=== PATIENT | male | born 1965 | race American Indian/Alaskan Native ===

== ENCOUNTER 2020-10-25 16:25 | Emergency (ER) | payer OTHER ==
[~2020-10-25] VITALS: Ht 170.2 cm; Wt 70.3 kg
[~2020-10-25 16:25] MED LIST: AMOX1TAB12 PO; DICLOFENAC SODI50 MG PO; DICLOFENAC SODI75 MG PO; IBUPROFEN800 MG PO; KEFLEX500 MG PO; MEDROLPACK PO; SKELAXIN800 MG PO; TYLENOL EXTRA500 MG
== END 2020-10-25 19:08 | disposition home or self-care (01) ==
LOC: ER 16:25
DX: N40.1 Benign prostatic hyperplasia with lower urinary tract symptoms (principal); R35.0 Frequency of micturition; R35.1 Nocturia

== ENCOUNTER 2021-04-21 16:38 | Outpatient (CLI) | payer OTHER | END 2021-04-21 16:48 | disposition home or self-care (01) | LOC: RAD 16:38 | PROVIDERS: ATTEND Internal Medicine | DX: M79.641 Pain in right hand (principal); G89.11 Acute pain due to trauma ==

== ENCOUNTER 2022-07-30 10:22 | Outpatient (CLI) | payer OTHER | END 2022-07-30 10:23 | disposition home or self-care (01) | LOC: RAD 10:22 | PROVIDERS: ATTEND Internal Medicine | DX: M25.552 Pain in left hip (principal); M54.2 Cervicalgia ==

== ENCOUNTER 2022-08-13 14:33 | Emergency (ER) | payer OTHER ==
[~2022-08-13] VITALS: Ht 170.2 cm; Wt 68.9 kg
[2022-08-13] MEDS ORDERED: TAMSULOSIN HCL0.4 MG PO (15:19)
[2022-08-13] MEDS ORDERED: ST. JOSEPH ASPI81 M2 PO (15:19)
== END 2022-08-13 20:16 | disposition home or self-care (01) ==
LOC: ER 14:33
DX: R31.0 Gross hematuria (principal)

== ENCOUNTER 2023-01-05 07:11 | Outpatient (CLI) | payer OTHER ==
[~2023-01-05 07:11] MED LIST changes: +ST. JOSEPH ASPI81 M2 PO; +TAMSULOSIN HCL0.4 MG PO
== END 2023-01-05 11:00 | disposition home or self-care (01) ==
LOC: TOM 07:11
PROVIDERS: ATTEND Urology
DX: N40.1 Benign prostatic hyperplasia with lower urinary tract symptoms (principal); R31.0 Gross hematuria; R97.20 Elevated prostate specific antigen [PSA]

== ENCOUNTER 2023-01-19 16:15 | Outpatient (CLI) | payer OTHER | END 2023-01-19 16:23 | disposition home or self-care (01) | LOC: RAD 16:15 | PROVIDERS: ATTEND Urology | DX: Z01.811 Encounter for preprocedural respiratory examination (principal) ==

== ENCOUNTER 2023-02-15 06:20 | Inpatient (IN) | payer OTHER | END 2023-02-17 13:31 | disposition home or self-care (01) | DRG 713 | LOC: CIR.AMB 06:20 → SURG 18:00 → O/R 18:00 → SURG 02-16 00:33 | PROVIDERS: ADMIT Urology; ATTEND Urology | PROC: 0VT08ZZ Resection of Prostate, Via Natural or Artificial Opening Endoscopic (ICD-10-PCS; principal; 2023-02-15 08:45) | DX: N40.1 Benign prostatic hyperplasia with lower urinary tract symptoms (principal); D65 Disseminated intravascular coagulation [defibrination syndrome]; D64.9 Anemia, unspecified; Z20.822 Contact with and (suspected) exposure to COVID-19 ==

== ENCOUNTER 2024-10-01 13:58 | Emergency (ER) | payer OTHER ==
[~2024-10-01] VITALS: Ht 170.2 cm; Wt 68.0 kg
[2024-10-01] MEDS ORDERED: FAMOTIDINE/PF 20 MG/2 ML VIAL IV ONE (16:30)
[2024-10-01] MEDS ORDERED: LACTOBACILLUS ACIDOPHILUS 1 CAP CAP PO ONE ×2 (16:30→16:59)
[2024-10-01] MEDS ORDERED: 0.9 % SODIUM CHLORIDE 500 ML IV ONE (16:30)
[2024-10-01] MEDS ORDERED: FAMOTIDINE/PF 20 MG/2 ML VIAL ONE (16:59)
[2024-10-01 17:37] LABS: HEMATOCRIT 48.3 % (39.0-48.0); HEMOGLOBIN 16.2 g/dL (13-16.00); MEAN CELL VOLUME 87.8 fL (80.0-100.00); MEAN CORPUSCULAR HEMOGLOBIN 29.5 pg (27.00-32.0); MEAN CORPUSCULAR HGB CONC 33.6 g/dl (32.0-36.0); PLATELET COUNT 188 K/uL (150-450); RED CELL DISTRIBUTION WIDTH 13.8 % (11.5-14.5)
[2024-10-01 18:02] LABS: ALBUMIN 4.2 gm/dL (3.4-5.0); BILIRUBIN TOTAL 0.67 mg/dL (0.3-1.2); CALCIUM 9.5 mg/dL (8.5-10.1); CREATININE SERUM 1.13 mg/dL (0.70-1.30); GFR 66.42; GLOBULINA 4.4 G/DL (2.4-3.5); POTASSIUM 4.36 mEq/L (3.5-5.1); TOTAL PROTEIN 8.6 gm/dL (6.4-8.2)
[2024-10-01 18:30] LABS: PH,URINE 5.5 (5.0-8.0); URINE APPEARANCE Cloudy; URINE BILIRRUBIN Negative (NEGATIVE); URINE BLOOD Negative; URINE COLOR Yellow; URINE GLUCOSE Negative (NEGATIVE); URINE KETONE Negative (NEGATIVE); URINE LEUKOCYTE Negative; URINE NITRATE Negative; URINE PROTEIN Trace (NEGATIVE); URINE UROBILINOGEN 0.2 E.U./dl
[2024-10-01 18:32] LABS: URINE BACTERIA 12.2 uL (0.0-1933); URINE CAST 1.47 uL (0.0-1.40); URINE EPITHELIAL CELLS 3.7 uL (0.0-38.8); URINE RBC 10.1 uL (0.0-20.8); URINE WBC 7.7 uL (0.0-23.2)
[2024-10-01] MEDS ORDERED: INTESTINEX680 M1 PO (19:56)
[2024-10-01] MEDS ORDERED: PEPCID AC20 MG PO (19:56)
== END 2024-10-01 21:10 | disposition home or self-care (01) ==
LOC: ER 14:01
PROVIDERS: General Practice
DX: A05.9 Bacterial foodborne intoxication, unspecified (principal); B34.9 Viral infection, unspecified; Z20.822 Contact with and (suspected) exposure to COVID-19